=== PATIENT | female | born 1960 | race Caucasian/White ===

== ENCOUNTER 2023-09-28 09:46 | Outpatient (AMB) | payer OTHER, SELFPAY ==
[2023-09-28 09:50] VITALS: BMI 22.1
--- NOTE | 2023-09-28 09:50 | A.OFFVIS_ITS ---
Intake Vital Signs 09/28/23 09:50 Height 5 ft 3 in Weight 125 lb BMI 22.1 Intake Visit Reasons: HEDGE TRIMMER- OA Right knee Intake Note: Bailey is a 63 year old female who presents today as a new patient with complaints of right knee pain. Patient was seen at [facility], Right Knee done June [address] Collins. Has tried and failed Tylenol, Motrin, Voltaren Gel, Hot/cold applications and Cortisone injection on 03/19/23 Patient reports that she is having pain and was told that she has bone to bone OA and would like to know the next steps. Allergies No Known Allergies Allergy (Verified 09/28/23 09:52) HPI HEDGE TRIMMER- OA Right knee HPI Details Bailey is a 63 year old woman who presents with complaints of right knee pain. She complains of pain with daily activity & WB, worse with walking or using stairs. She developed a MMT in 12/2022 while hiking, and found little to no relief from Tylenol, NSAIDs, hot/cold, or steroid injections. Her last injection was on 03/19/23. She underwent a right knee on 06/23/23, at [facility], but she continues to have pain. She was told she has knee OA and would like to discuss treatment options. She is able to walk an hour but has not returned to her pre-operative activity level. She would like to be able to run and hike wiothout pain. Now she describes aching pain and discomfort rather than sharp pain. [facility] Surgical History (Updated 09/28/23 @ 09:57 by Jasmine Vang CMA) History of suburethral sling procedure Hx of inguinal hernia surgery S/P right knee arthroscopy (06/23/23) Social History (Updated 09/28/23 @ 09:56 by Jasmine Vang CMA) Patient Tobacco Use Status: Former Tobacco user Current occupation: private tutors and teachers Review of Systems Const All systems reviewed & are unremarkable except as noted in HPI and below Physical Exam Vital Signs: BMI result Body Mass Index 22.1 Const General: no acute distress, alert and awake Orientation/consciousness: patient oriented x3 HEENT Head: Yes normocephalic and Yes atraumatic Eyes EOM: EOMs intact bilaterally Resp Effort & Inspection: normal respiratory effort and able to speak in complete sentences Cardio Jugular venous distension: no JVD Skin General skin exam: turgor normal Rashes: no rashes Neuro General: patient oriented x3 Extrem Other: Right knee with full ROM No effusion Well healed portals Mild soreness with medial compartment palpation Varus alignement bilaterally Psych Appearance: grossly normal Affect: normal affect Attitude: cooperative Results Reviewed Results Reviewed: I personally reviewed the MR images. I also reviewed the arthroscopic images from her surgery ~ 3 months ago. There is medial compartment OA ( G2) and subchondral edema on MRI Assessment & Plan Assessment & Plan (1) Arthritis of right knee: Code(s): M17.11 - Unilateral primary osteoarthritis, right knee Plan: Mild to moderate OA in a active and healty 63 y.o. At this moment I recommend PT for strengthening. She has varus alignment and is overloading the medial compartment chronically. 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 Other potential beneficial interventions would include unloading brace and biologics. Plan Prepared for Viktor Martinez MD by Pedro Clay, medical or surgical instrument maker, on 09/28/23 at 9:57 AM, EST. Orders: Orders PT Evaluation and Treatment Today M17.11 - Unilateral primary osteoarthritis, right knee Coding Level of Care Code New Pt Level 3 (76284) Diagnoses Arthritis of right knee M17.11
== END 2023-09-28 10:54 | disposition home or self-care (01) ==
PROVIDERS: Visit Provider Orthopaedic Surgery
DX: M17.11 Unilateral primary osteoarthritis, right knee (principal)
CPT/HCPCS: 99203

== ENCOUNTER → 2023-09-28 09:46 | Outpatient (BNVA) | payer OTHER, SELFPAY | PROVIDERS: Visit Provider Orthopaedic Surgery ==

== ENCOUNTER 2023-11-21 16:00 | Outpatient (RCR) | payer OTHER, SELFPAY ==
--- NOTE | 2023-10-17 17:07 | MHC.PT.EP ---
[facility] [place] Office [place] Office [place] Office [address] Carmina Horner [address] [phone] F: [phone] F: [phone] F: [phone] F: [phone] Physical Therapy Plan of Care Date of Evaluation: 10/17/23 Date of Surgery: Diagnosis: osteoarthritis right knee (RL) Assessment: pt is a 63 y/o female presenting to physical therapy w/ referring diagnosis of osteoarthritis right knee. Impairments include pain, decreased range of motion, decreased strength, impaired functional mobility, impaired postural awareness, and altered ambulation mechanics. pt is a good candidate for skilled PT due to age, potential remediation of impairments, typical disease/condition progression and prognosis, comorbidities, and motivation. pt would benefit from skilled PT intervention to provide a tailored strengthening and stretching exercise program, functional training, gait training, postural re-training, neuromuscular re-education, modalities as needed for pain, equipment safety demonstration. Frequency and Duration: The patient will be seen 2x/wk for 4 wks Short Term Goals: pt will be I w/ HEP to promote self-management of condition. pt will improve R knee extension to 0 degrees to normalize gait pattern on even ground. Desizing Machine Back Tender Goals: pt will improve R hip adduction strength by 1 MMT grade to promote neutral knee w/ dynamic activities including squatting to pick pack worker objects off floor. pt will ascend/descend 12 stairs w/ reciprocal pattern w/ reports of no more than 2/10 pain. Treatment Plan: Modalities to reduce pain, spasms and effusion. Manual therapy to restore motion and function. Therapeutic exercise to improve strength and flexibility. Neuromuscular re-education for posture and balance. Therapeutic activities to return to functional activities of daily living. Electronically signed by: Janis Mederos PT, DPT Please sign and return to therapist. Thank you for your referral.
--- NOTE | 2023-11-23 08:28 | MHC.PT.DC ---
[facility] [place] Office [place] Office [place] Office [address] Carmina Horner [address] [facility] [phone] F: [phone] F: [phone] F: [phone] F: [phone] Physical Therapy Discharge Report Diagnosis: osteoarthritis right knee (RL) Date of Surgery: Date of Evaluation: 10/17/23 Date of Discharge: 11/23/23 Treatments to Date: 6 Cancellations to Date: 3 No Shows to Date: 0 Discharge Status: Improved Function Independent with HEP Discharge Summary: She had significant improvement in LEFI. Strength is 5/5 all planes of the knee. Knee AROM is WNL at this time. D/C to HEP. Electronically signed by: Janis Mederos PT, DPT Please sign and return to therapist. Thank you for your referral.
== END 2023-11-23 08:29 | disposition home or self-care (01) ==
LOC: HO.PT 16:00
PROVIDERS: PCP Physician Assistant; Visit Provider Orthopaedic Surgery
DX: M17.11 Unilateral primary osteoarthritis, right knee (principal)
CPT/HCPCS: 97033; 97110; 97161; 97530